=== PATIENT | male | born 1980 | race Caucasian/White ===

== ENCOUNTER 2023-06-17 03:48 | Inpatient (IN) | payer MEDICAID, OTHER ==
[~2023-06-17] VITALS: Ht 177.8 cm; Wt 216.5 kg
[2023-06-17 05:34] LABS: Basophils # (auto) 0 10 ^3/uL (0-0.2); Basophils % (auto) 0.4 % (0.0-2.0); Eosinophils # (auto) 0.1 10 ^3/uL (0-0.8); Eosinophils % (auto) 2.9 % (0.0-7.0); Lymphocytes # (auto) 0.7 10 ^3/uL (0.4-5.4); Monocytes # (auto) 0.3 10 ^3/uL (0-1.3); White Blood Cell 2.7 10^3/uL (4.4-10.8)
[2023-06-17 05:37] LABS: Hematocrit 29.9 % (41.0-53.0); Lymphocytes % (auto) 26.7 % (10.0-50.0); Mean Corpuscular Hgb Conc. 33.3 g/dL (32.0-36.0); Monocytes % (auto) 12.7 % (0.0-12.0); Neutrophils # (auto) 1.5 10 ^3/uL (1.6-8.6); Neutrophils % (auto) 57.3 % (37.0-80.0); Nucleated Red Blood Cells % 0.5 %; Red Blood Cells 2.93 10^6/uL (4.5-5.90); Red Cell Distribution Width 17.8 % (11.8-14.3)
[2023-06-17 05:38] LABS: Alanine Aminotransferase 23 U/L (7-40); Albumin 2.2 g/dL (3.2-4.8); Alkaline Phosphatase 103 U/L (46-116); Anion Gap 5 (5-15); Aspartate Aminotransferase 55 U/L (13-40); Blood Urea Nitrogen 9 mg/dL (9-23); Calcium 7.7 mg/dL (8.7-10.4); Carbon Dioxide 29 mmol/L (20-30); Chloride 105 mmol/L (98-107); Glucose 91 mg/dL (74-106); Potassium 3.1 mmol/L (3.5-5.1); Sodium 139 mmol/L (136-145)
[2023-06-17 05:39] LABS: Bilirubin, Total 5.7 mg/dL (0.2-1.0); Total Protein 7.1 g/dL (5.7-8.2)
[2023-06-17 05:41] LABS: INR 1.92 (0.9-1.15); Partial Thromboplastin Time 34.9 SEC (24.5-34.5); Prothrombin Time 19.3 sec (9.3-11.8)
[2023-06-17 06:03] VITALS: PULSE 92; RESP 16; O2SAT 99
[2023-06-17] MEDS ORDERED: MORPHINE SULFATE 4 MG/ML SYR/VIAL IV ONE (06:30)
[2023-06-17] MEDS ORDERED: POTASSIUM CHL 20MEQ/100ML 100 ML IV ONE (07:00)
[2023-06-17] MEDS ORDERED: DOCUSATE SOD 100 MG CAP PO PRN (11:30)
[2023-06-17] MEDS ORDERED: ONDANSETRON HCL 4 MG/2 ML VIAL IV PRN (11:30)
[2023-06-17] MEDS ORDERED: hydrALAZINE HCL 20 MG/ML VL IV PRN (11:30)
[2023-06-17] MEDS: LISINOPRIL 10 MG TAB PO SCH (14:17)
[2023-06-17] MEDS: hydroCHLOROthiazide 25 MG TAB PO SCH (14:18)
[2023-06-17] MEDS: MORPHINE SULFATE INJ 2 MG/ml SYRG IV PRN ×2 (14:20→22:41)
[2023-06-17] MEDS: SPIRONOLACTONE 25 MG TAB PO SCH (14:21)
[2023-06-17 17:00] VITALS: BP 136/62; PULSE 97; RESP 19; TEMP 97.7; O2SAT 98
[2023-06-17] MEDS: FUROSEMIDE 100 MG/10ML VIAL IV SCH (18:07)
[2023-06-17] MEDS ORDERED: LISI-285 PO (18:15)
[2023-06-17] MEDS ORDERED: FURO40TA4 PO (18:15)
[2023-06-17] MEDS ORDERED: SPIR100T4 PO (18:15)
[2023-06-17 22:00] VITALS: BP 118/39; PULSE 90; RESP 18; TEMP 97.9; O2SAT 97
[2023-06-18] MEDS: MORPHINE SULFATE INJ 2 MG/ml SYRG IV PRN ×4 (04:14→23:02)
[2023-06-18 05:00] VITALS: BP_SYST 119; BP_SYST 137; BP_DIAS 50; BP_DIAS 79; PULSE 73; PULSE 85; RESP 17; RESP 18; TEMP 97.6; TEMP 97.7; O2SAT 95; O2SAT 97
[2023-06-18 06:22] LABS: Mean Corpuscular Hemoglobin 34.3 pg (28.0-32.0); Red Blood Cells 2.63 10^6/uL (4.5-5.90); Red Cell Distribution Width 17.5 % (11.8-14.3)
[2023-06-18] MEDS: FUROSEMIDE 100 MG/10ML VIAL IV SCH ×2 (06:23→17:59)
[2023-06-18 06:25] LABS: Hematocrit 26.5 % (41.0-53.0); Mean Corpuscular Volume 101.1 fL (80.0-100.0)
[2023-06-18 06:40] LABS: Alanine Aminotransferase 18 U/L (7-40); Albumin 1.9 g/dL (3.2-4.8); Alkaline Phosphatase 83 U/L (46-116); Anion Gap 4 (5-15); Aspartate Aminotransferase 46 U/L (13-40); BUN/Creatinine Ratio 20.7 (10.0-20.0); Bilirubin, Total 4.7 mg/dL (0.2-1.0); Blood Urea Nitrogen 12 mg/dL (9-23); Calcium 7.6 mg/dL (8.7-10.4); Carbon Dioxide 27 mmol/L (20-30); Chloride 106 mmol/L (98-107); Glucose 90 mg/dL (74-106); Potassium 3.5 mmol/L (3.5-5.1); Sodium 137 mmol/L (136-145); Total Protein 6.3 g/dL (5.7-8.2)
[2023-06-18 07:34] LABS: White Blood Cell 1.9 10^3/uL (4.4-10.8)
[2023-06-18 07:35] LABS: Band Neutrophils % (manual) 0; Basophils % (manual) 0 (0.0-2.0); Blast Cells 0; Metamyelocytes % 0; Myelocytes % 0; Promyelocytes % 0; Reactive Lymphocytes 0
[2023-06-18 08:00] VITALS: BP 133/53; PULSE 85; RESP 22; TEMP 98; O2SAT 98
[2023-06-18 08:15] VITALS: BP 133/53; PULSE 85; RESP 22; TEMP 98
[2023-06-18] MEDS: SPIRONOLACTONE 25 MG TAB PO SCH (09:42)
[2023-06-18] MEDS: LISINOPRIL 10 MG TAB PO SCH (09:42)
[2023-06-18] MEDS: hydroCHLOROthiazide 25 MG TAB PO SCH (09:43)
[2023-06-18 11:03] LABS: Eosinophils % (manual) 4 (0-7); Lymphocytes % (manual) 26 (10.0-50.0); Monocytes % (manual) 9 (0-12); Platelet Estimate Decreased
[2023-06-18 12:00] VITALS: BP 129/44; PULSE 75; RESP 20; TEMP 97.7; O2SAT 96
[2023-06-18 16:00] VITALS: BP_SYST 106; BP_SYST 123; BP_DIAS 49; BP_DIAS 70; PULSE 61; PULSE 80; RESP 20; TEMP 97.5; TEMP 98.2; O2SAT 95; O2SAT 98
[2023-06-18] MEDS: THROAT LOZENGES(CEPASTAT) MT PRN ×2 (18:01→21:32)
[2023-06-18 22:00] VITALS: BP 137/46; PULSE 87; RESP 20; TEMP 99; O2SAT 99
[2023-06-19] MEDS: THROAT LOZENGES(CEPASTAT) MT PRN ×3 (04:23→22:05)
[2023-06-19] MEDS: MORPHINE SULFATE INJ 2 MG/ml SYRG IV PRN ×4 (04:23→20:55)
[2023-06-19 04:55] VITALS: BP 110/47; PULSE 87; RESP 17; TEMP 98.8; O2SAT 96
[2023-06-19] MEDS: FUROSEMIDE 100 MG/10ML VIAL IV SCH ×2 (06:19→17:24)
[2023-06-19 09:00] VITALS: BP 135/45; PULSE 67; RESP 20; TEMP 97.8; O2SAT 97
[2023-06-19] MEDS: SPIRONOLACTONE 25 MG TAB PO SCH (09:29)
[2023-06-19] MEDS: LISINOPRIL 10 MG TAB PO SCH (09:31)
[2023-06-19] MEDS: hydroCHLOROthiazide 25 MG TAB PO SCH (09:31)
[2023-06-19 09:52] LABS: Hepatitis B Core Total AB Negative (Negative)
[2023-06-19 14:58] LABS: Hepatitis A Total Antibody Positive (Negative)
[2023-06-19 15:10] LABS: Hepatitis B Surface Antibody Positive (Negative); Hepatitis B Surface Antigen Negative (Negative); Hepatitis C Antibody Negative (Negative)
[2023-06-19 17:00] VITALS: BP 112/38; PULSE 95; RESP 20; TEMP 98.4; O2SAT 95
[2023-06-19 22:00] VITALS: BP 128/46; PULSE 92; RESP 18; TEMP 99; O2SAT 96
[2023-06-20] MEDS: MORPHINE SULFATE INJ 2 MG/ml SYRG IV PRN ×5 (01:48→21:33)
[2023-06-20] MEDS: THROAT LOZENGES(CEPASTAT) MT PRN ×5 (01:49→22:45)
[2023-06-20 05:00] VITALS: BP 118/37; PULSE 92; RESP 20; TEMP 98.8; O2SAT 98
[2023-06-20] MEDS: FUROSEMIDE 100 MG/10ML VIAL IV SCH ×2 (06:36→17:31)
[2023-06-20 09:00] VITALS: BP 141/50; PULSE 89; RESP 18; TEMP 98; O2SAT 93
[2023-06-20] MEDS: SPIRONOLACTONE 25 MG TAB PO SCH (09:08)
[2023-06-20] MEDS: LISINOPRIL 10 MG TAB PO SCH (09:09)
[2023-06-20] MEDS: hydroCHLOROthiazide 25 MG TAB PO SCH (09:09)
[2023-06-20 12:23] VITALS: BP 134/58; PULSE 83; RESP 18
[2023-06-20] MEDS ORDERED: ROPI0.254 PO (16:49)
[2023-06-20 17:00] VITALS: BP 120/55; PULSE 84; RESP 18; TEMP 98.2; O2SAT 97
[2023-06-20 20:00] VITALS: BP 131/43; PULSE 93; RESP 20; TEMP 99.2; O2SAT 98
[2023-06-20 22:00] VITALS: BP 131/64; PULSE 93; RESP 20; TEMP 99.2; O2SAT 98
[2023-06-21] VITALS (7 sets, daily range): BP systolic 98–119; BP diastolic 39–51; PULSE 72–101; RESP 16–24; TEMP 97.4–98.8; O2SAT 93–98
[2023-06-21] MEDS: MORPHINE SULFATE INJ 2 MG/ml SYRG IV PRN ×4 (02:03→20:19)
[2023-06-21] MEDS: FUROSEMIDE 100 MG/10ML VIAL IV SCH ×2 (06:17→18:20)
[2023-06-21] MEDS: SPIRONOLACTONE 25 MG TAB PO SCH (09:09)
[2023-06-21] MEDS: hydroCHLOROthiazide 25 MG TAB PO SCH (09:10)
[2023-06-21] MEDS: THROAT LOZENGES(CEPASTAT) MT PRN ×2 (09:10→18:32)
[2023-06-21] MEDS: LISINOPRIL 10 MG TAB PO SCH (09:10)
[2023-06-21] MEDS: ALBUMIN 25% 100 ML IV SCH (23:30)
[2023-06-22] VITALS (7 sets, daily range): BP systolic 100–132; BP diastolic 48–74; PULSE 69–99; RESP 16–22; TEMP 98–98.9; O2SAT 94–99
[2023-06-22] MEDS: MORPHINE SULFATE INJ 2 MG/ml SYRG IV PRN ×4 (00:50→22:23)
[2023-06-22] MEDS: THROAT LOZENGES(CEPASTAT) MT PRN ×2 (04:53→09:53)
[2023-06-22] MEDS: FUROSEMIDE 100 MG/10ML VIAL IV SCH ×2 (06:10→19:08)
[2023-06-22] MEDS: ALBUMIN 25% 100 ML IV SCH ×2 (08:19→14:49)
[2023-06-22] MEDS: LISINOPRIL 10 MG TAB PO SCH (09:41)
[2023-06-22] MEDS: SPIRONOLACTONE 25 MG TAB PO SCH (09:41)
[2023-06-22] MEDS: hydroCHLOROthiazide 25 MG TAB PO SCH (09:42)
[2023-06-23] MEDS: MORPHINE SULFATE INJ 2 MG/ml SYRG IV PRN ×4 (04:45→21:11)
[2023-06-23 05:00] VITALS: BP 121/59; PULSE 90; RESP 16; TEMP 98.2; O2SAT 96
[2023-06-23] MEDS: FUROSEMIDE 100 MG/10ML VIAL IV SCH ×2 (06:08→18:22)
[2023-06-23 08:15] VITALS: BP 128/63; PULSE 88; RESP 20; TEMP 98.2; O2SAT 98
[2023-06-23] MEDS: SPIRONOLACTONE 25 MG TAB PO SCH (10:16)
[2023-06-23] MEDS: LISINOPRIL 10 MG TAB PO SCH (10:16)
[2023-06-23] MEDS: hydroCHLOROthiazide 25 MG TAB PO SCH (10:19)
[2023-06-23 12:15] VITALS: BP 130/56; PULSE 88; RESP 17; TEMP 98; O2SAT 98
[2023-06-23 16:05] VITALS: BP 109/58; PULSE 92; RESP 18; TEMP 98.2; O2SAT 98
[2023-06-23 20:00] VITALS: BP 121/50; PULSE 94; RESP 20; TEMP 97.7; O2SAT 100
[2023-06-23 22:00] VITALS: BP 121/50; PULSE 94; RESP 20; TEMP 97.7; O2SAT 100
[2023-06-24] VITALS (7 sets, daily range): BP systolic 118–133; BP diastolic 50–62; PULSE 88–97; RESP 17–22; TEMP 97.6–98.3; O2SAT 95–100
[2023-06-24] MEDS: MORPHINE SULFATE INJ 2 MG/ml SYRG IV PRN ×4 (01:52→21:11)
[2023-06-24] MEDS: FUROSEMIDE 100 MG/10ML VIAL IV SCH ×2 (05:48→16:58)
[2023-06-24] MEDS: LISINOPRIL 10 MG TAB PO SCH (10:01)
[2023-06-24] MEDS: SPIRONOLACTONE 25 MG TAB PO SCH (10:01)
[2023-06-24] MEDS: hydroCHLOROthiazide 25 MG TAB PO SCH (10:02)
[2023-06-25] MEDS: MORPHINE SULFATE INJ 2 MG/ml SYRG IV PRN ×5 (04:01→23:05)
[2023-06-25 05:00] VITALS: BP 112/61; PULSE 85; RESP 22; TEMP 98.1; O2SAT 94
[2023-06-25] MEDS: FUROSEMIDE 100 MG/10ML VIAL IV SCH ×2 (06:09→18:48)
[2023-06-25 09:00] VITALS: BP_SYST 126; BP_SYST 132; BP_DIAS 66; BP_DIAS 78; PULSE 70; PULSE 88; RESP 18; RESP 20; TEMP 97.6; TEMP 98.6; O2SAT 95; O2SAT 97
[2023-06-25] MEDS: SPIRONOLACTONE 25 MG TAB PO SCH (09:12)
[2023-06-25] MEDS: LISINOPRIL 10 MG TAB PO SCH (09:13)
[2023-06-25] MEDS: hydroCHLOROthiazide 25 MG TAB PO SCH (09:13)
[2023-06-25 13:05] VITALS: BP 123/72; PULSE 72; RESP 18; TEMP 98.4; O2SAT 95
[2023-06-25 17:00] VITALS: BP 116/53; PULSE 86; RESP 18; TEMP 97.5; O2SAT 96
[2023-06-25 20:00] VITALS: BP 132/53; PULSE 82; RESP 20; TEMP 99.1
[2023-06-25 22:00] VITALS: BP 132/53; PULSE 82; RESP 20; TEMP 99.1; O2SAT 97
[2023-06-26] MEDS: MORPHINE SULFATE INJ 2 MG/ml SYRG IV PRN ×2 (04:44→11:08)
[2023-06-26 05:00] VITALS: BP 111/66; PULSE 83; RESP 18; TEMP 99; O2SAT 96
[2023-06-26] MEDS: FUROSEMIDE 100 MG/10ML VIAL IV SCH (06:05)
[2023-06-26 09:00] VITALS: BP 104/45; PULSE 94; RESP 22; TEMP 98.1; O2SAT 96
[2023-06-26] MEDS: LISINOPRIL 10 MG TAB PO SCH (09:59)
[2023-06-26] MEDS: hydroCHLOROthiazide 25 MG TAB PO SCH (09:59)
[2023-06-26] MEDS: SPIRONOLACTONE 25 MG TAB PO SCH (10:00)
[2023-06-26] MEDS ORDERED: FURO40TA4 PO (12:06)
[2023-06-26] MEDS ORDERED: HYDR-4902 PO (12:06)
[2023-06-26 13:00] VITALS: BP 122/51; PULSE 86; RESP 20; TEMP 97.9; O2SAT 96
== END 2023-06-26 16:06 | disposition home or self-care (01) ==
LOC: EDBD 03:48 → ER 03:48 → OVERFLOW 11:33 → WEST WING 16:48
PROVIDERS: ADMIT Nurse Practitioner Family; ATTEND Internal Medicine
DX: K74.60 Unspecified cirrhosis of liver (principal); I50.43 Acute on chronic combined systolic (congestive) and diastolic (congestive) heart failure; D61.818 Other pancytopenia; D68.59 Other primary thrombophilia; I11.0 Hypertensive heart disease with heart failure; R33.8 Other retention of urine; E87.6 Hypokalemia; I16.1 Hypertensive emergency; N50.89 Other specified disorders of the male genital organs; Z87.891 Personal history of nicotine dependence; E66.01 Morbid (severe) obesity due to excess calories; Z68.41 Body mass index [BMI] 40.0-44.9, adult
CPT/HCPCS: 36415; 71045; 76705; 80053; 82105; 82140; 83735; 83880; 84132; 84484; 85007; 85025; 85027; 85610; 85730; 86704; 86706; 86708; 86803; 87081; 87340; 93306; 96365; 96375; 97110; 97116; 97163; 97530; 99291; G0378; J3480; P9047